=== PATIENT | female | born 1955 | race Hispanic/Latino ===

== ENCOUNTER 2017-07-08 16:10 | Inpatient (IN) | payer SELFPAY ==
[~2017-07-08] VITALS: Ht 165.1 cm; Wt 77.0 kg
[~2017-07-08 16:10] MED LIST: FISH OIL1000 MG PO; LANTUS100 UNIT/M SC; LISINOPRIL20 MG PO; METFORMIN500 MG PO; METOPROL TAR25 MG PO; NORVASC2.5 MG PO; PRAVASTATIN10 MG PO; ULTRAM50 MG PO; ZOFRAN4 MG/TAB PO
--- NOTE | 2017-07-08 16:21 | NUR ---
PT TO ROOM FOR EXAM
[2017-07-08] MEDS ORDERED: ATENOLOL50 MG PO (16:51)
[2017-07-08] MEDS ORDERED: AMITRIPTYLIN25 MG PO (16:53)
[2017-07-08] MEDS ORDERED: RANITIDINE150 M1 PO (16:53)
[2017-07-08] MEDS ORDERED: LOPID600 MG PO (16:56)
[2017-07-08] MEDS ORDERED: OSELTAMIVIR PHO75 MG PO (16:57)
--- NOTE | 2017-07-08 17:05 | NUR ---
RT AT BEDSIDE TO DRAW ABG. PATIENT INFORMED PRIOR, VERBAL UNDERSTANDING.
--- NOTE | 2017-07-08 17:15 | NUR ---
2L /MIN APPLIED TO PATIENT VIA NASAL CANNULA.
[2017-07-08 17:27] LABS: HEMATOCRIT 41.2 % (37.0-47.0); HEMOGLOBIN 13.5 g/dl (12.0-16.0); MEAN CELL VOLUME 83.1 fL CALC (80.0-100.0); MEAN CORPUSCULAR HGB 27.2 pG CALC (26.0-32.0); MEAN CORPUSCULAR HGB CONC 32.8 g/L CALC (32.0-36.0); PLATELET COUNT 244 thou/uL (130-400); RED BLOOD COUNT 4.96 mill/uL (4.20-5.60); RED CELL DISTRI WIDTH 13.8 % (11.5-15.5)
--- NOTE | 2017-07-08 17:30 | NUR ---
PATIENT REPORTS NO RELIEF AFTER 2 MG MORPHINE GIVEN. INFORMED.
[2017-07-08 17:37] LABS: IMMATURE GRANULOCYTES 7.8 % (0.0-1.0)
[2017-07-08 17:38] LABS: BAND 30 % (0-8); MANUAL DIFFERENTIAL YES
[2017-07-08 17:49] LABS: ALBUMIN 3.9 g/dL (3.2-5.0); ALKALINE PHOSPHATASE 109 u/l (38-126); AMYLASE < 30 u/l (30-110); ANION GAP 26 (6-22 (CALC)); BILIRUBIN, TOTAL 0.4 mg/dL (0.0-1.4); BUN 29 mg/dL (8-23); BUN/CREATININE RATIO 27 (12-20 (CALC)); CARBON DIOXIDE 17 mmol/l (22-30); CHLORIDE 98 mmol/l (95-108); CREATININE 1.1 mg/dL (0.5-1.0); GFR 50 ML/MIN (>=60 (CALC)); GFR FOR AFR.AMER. > 60 ML/MIN (>=60 (CALC)); LIPASE 20 u/l (23-300); POTASSIUM 4.8 mmol/l (3.5-5.1); SGOT/AST 16 u/l (9-36); SGPT/ALT 23 u/l (11-66); SODIUM 136 mmol/l (137-146); TOTAL PROTEIN 7.3 g/dL (6.3-8.2)
[2017-07-08 18:00] LABS: MYOGLOBIN 45 ng/mL (0 - 62)
--- NOTE | 2017-07-08 18:20 | NUR ---
SECOND LINE STARTED. MEDICATIONS PER MD ORDER GIVEN. VERBAL UNDERSTANDING OF PLAN OF CARE. INFORMED TO CALL FOR ASSISTANCE, CALL LIGHT WITHIN REACH. WILL CONTINUE TO MONITOR.
--- NOTE | 2017-07-08 19:04 | NUR ---
REPORT CALLED TO ERIN PERSAUD.
--- NOTE | 2017-07-08 19:15 | NUR ---
PT ARRIVED TO UNIT VIA STRETCHER WITH ER STAFF. ASSISTED TO BED WITH ONE PERSON ASSIST. DAUGHTER AT BEDSIDE. IV FLUIDS BOLUSES REINITIATED PER SEPSIS RISK PROTOCOL. [facility] CALLED FROM LAB AND MD NOTIFIED; TREATMENT CURRENTLY IN PLACE AND NEW ORDER FOR A TOTAL OF 4L BOLUS. PT C/O SEVERE PAIN TO RUQ RADIATING TO HER BACK. TACHYPNIC ON 2L OF OXYGEN WITH RESPIRAITONS IN THE 30'S AND HEART RATE ALSO ELEVATED IN THE 130'S. GLUCOSE UPON ARRIVAL IS 504. DR. ANGULO GAVE ORDERS TO GIVE 2100 INSULIN NOW. PT IS PERSIAN SPEAKING ONLY. ORIENTED TO ROOM AND CALL LIGHT SYSTEM. SAFETY MEASURES IN PLACE. CALL LIGHT WITHIN REACH.
--- NOTE | 2017-07-08 19:15 | NUR ---
PATIENT TRANSPORTED TO [facility] VIA WHEELCHAIR. BEDSIDE REPORT GIVEN TO ERIN PERSAUD. CARE RELINQUISHED.
[2017-07-08 20:30] VITALS: BP 146/75
[2017-07-08 21:47] LABS: ANION GAP 17 (6-22 (CALC)); BUN 28 mg/dL (8-23); BUN/CREATININE RATIO 36 (12-20 (CALC)); CARBON DIOXIDE 17 mmol/l (22-30); CREATININE 0.8 mg/dL (0.5-1.0); GFR > 60 ML/MIN (>=60 (CALC)); GFR FOR AFR.AMER. > 60 ML/MIN (>=60 (CALC)); POTASSIUM 4.2 mmol/l (3.5-5.1); SODIUM 141 mmol/l (137-146)
[2017-07-08 21:48] LABS: CHLORIDE 111 mmol/l (95-108)
[2017-07-08 21:58] VITALS: BP 145/80
--- NOTE | 2017-07-08 22:30 | NUR ---
FLUID BOLUS' COMPLETED AND PT IS NOW ON MAINTENANCE FLUIDS. LACTIC ACID DECREASED TO 2.8. HEART RATE STILL ELEVATED AT 128 AND RESPIRATIONS 28. BLOOD GLUCOSE DECREASED TO 275. PAIN MEDICATION GIVEN WITH GOOD EFFECT. PT NOW RESTING IN BED WITH EYES CLOSED IN NO DISTRESS. HAS BEEN UP TO [facility] TO VOID 700ML SO FAR.
[2017-07-08 23:05] VITALS: BP 115/70
[2017-07-09] VITALS (17 sets, daily range): BP systolic 116–187; BP diastolic 64–94
--- NOTE | 2017-07-09 00:52 | NUR ---
PT AWAKE; STATES THAT PAIN IS BETTER. HAS NO REQUESTS AT THIS TIME. BLOOD PRESSURE IS STABLE AND LACTIC ACID WNL. RESPIRATIONS ARE EVEN AND UNLABORED ON OXYGEN.
--- NOTE | 2017-07-09 05:28 | NUR ---
PT CONTINUES TO C/O PAIN TO AREA BENEATH RIGHT RIB CAGE; WILL GIVE NEXT DOSE OF TORDOL WHEN ABLE. RESPIRATIONS EVEN AND UNLABORED ON OXYGEN. PT PLACED ON DROPLET PRECAUTIONS FOR FLU DX. UP TO BSC AD ANDRIY WITH STAND BY ASSIST. HAS NOT PLACED CALL LIGHT ON; ENCOURAGED TO CALL FOR ASSISTANCE. IV FLUIDS INFUSING WITHOUT DIFFICUTLY; BOTH IV SITES APPEAR HEALTHY. SAFETY MEASURES IN PLACE. CALL LIGHT WITHIN REACH.
[2017-07-09 05:30] LABS: HEMATOCRIT 34.6 % (37.0-47.0); HEMOGLOBIN 11.2 g/dl (12.0-16.0); IMMATURE GRANULOCYTES 0.6 % (0.0-1.0); MEAN CELL VOLUME 83.8 fL CALC (80.0-100.0); MEAN CORPUSCULAR HGB 27.1 pG CALC (26.0-32.0); MEAN CORPUSCULAR HGB CONC 32.4 g/L CALC (32.0-36.0); PLATELET COUNT 233 thou/uL (130-400); RED BLOOD COUNT 4.13 mill/uL (4.20-5.60); RED CELL DISTRI WIDTH 13.8 % (11.5-15.5)
[2017-07-09 06:15] LABS: ANION GAP 14 (6-22 (CALC)); BUN 25 mg/dL (8-23); BUN/CREATININE RATIO 44 (12-20 (CALC)); CARBON DIOXIDE 20 mmol/l (22-30); CHLORIDE 114 mmol/l (95-108); CREATININE 0.6 mg/dL (0.5-1.0); GFR > 60 ML/MIN (>=60 (CALC)); GFR FOR AFR.AMER. > 60 ML/MIN (>=60 (CALC)); SODIUM 144 mmol/l (137-146)
[2017-07-09 06:25] LABS: MANUAL DIFFERENTIAL YES
[2017-07-09 06:26] LABS: BAND 13 % (0-8); PLATELET ESTIMATE NORMAL
--- NOTE | 2017-07-09 06:32 | NUR ---
DAUGHTER IN LAW CALLED FOR AN UPDATE; ALL QUESTIONS ANSWERED TO SATISFACTION.
--- NOTE | 2017-07-09 07:45 | NUR ---
ASSESSMENT IS COMPLETED; PT IS SITTING UP IN BED WITH MINIMAL DISTRESS NOTED. IV SITE IS FREE FROM REDNESS OR EDEMA. CONITNUE TO OBSERVE AND MONITOR. O2@ 2LITERS WITH NC.
--- NOTE | 2017-07-09 12:15 | NUR ---
PT IS RELAXING IN BED WITH FAMILY IN THE ROOM. IV SITE IS FREE FROM REDNESS OR EDEMA.
--- NOTE | 2017-07-09 14:45 | NUR ---
PT WENT TO HAVE AN CTA COMPLETED> RETURNED AT 1500
--- NOTE | 2017-07-09 16:15 | NUR ---
PT CONTINUES TO RELAX IN BED , CONTINUE T OSBERVE AND MONITOR.
--- NOTE | 2017-07-09 18:31 | NUR ---
PT ATE BETTER FOR SUPPER FULL LIQUIDS EASIER FOR PT TO TAKE. CONTINUE TO OSBERVE AND MONITOR.
--- NOTE | 2017-07-09 19:15 | NUR ---
PATIENT IS SITTING UP IN THE CHAIR-AWAKE ALERT AND ORIENTEDX3. PATIENT WITH O2 VIA NASAL CANNULA IN PLACE AT 2LPM. PATIENT RECIEVING NEB TREATMENT AT THIS TIME. PATIENT WITH DIMINISHED BS TO RIGHT LUNG FEILD. C/O SEVERE PAIN TO RIGHT CHEST/BACK. COLOR IS PASTY/SKIN IS CLAMMY. MARITO MARTINEZ AWARE OF TROP OF 0.358. WILL AWAIT FURTHER ORDERS.
--- NOTE | 2017-07-09 19:45 | NUR ---
PATIENT MEDICATED FOR C/O SEVERE PAIN WITH DILAUDID 0.5MG IVP ORDRED FOR PAIN. IV SITE TO RIGHT FOREARM INTACT AND APPEARS HEALTHY AT THIS TIME. JOHN ROBINS FROM OB HERE FOR TRANSLATION. PATIENT INFORMED THAT SHE IS GOING TO BE TRANSFERRED TO ICU FOR CLOSER OBSERVATION AT THIS TIME. PATIENT VERBALIZES UNDERSTANDING OF THE STATED. PREPARING FOR TRANSFER TO ICU-4 AT THIS TIME.
--- NOTE | 2017-07-09 20:00 | NUR ---
PATIENT MEDICATED WITH LOVENOX SQ GIVEN AND VANCO STARTED ORDERED. PATIENT TRANSFERRED TO ICU-BED 4 VIA BED WITH O2 VIA NASAL CANNULA. BEDSIDE REPORT GIVEN TO MEDHAT ROBINS . ATTEMPTED TO CALL PHONE NUMBERS LISTED IN ADMINISTRATIVE DATA-BOTH NUMBERS ARE NOT IN SERVICE AT THIS TIME.
--- NOTE | 2017-07-09 20:05 | NUR ---
PT TO ICU VIA BED ACCOMPANIED BY MS STAFF. PT PLACED ON MOLD SHIFTER, O2 SAT, O2 2L NC, BP.
--- NOTE | 2017-07-09 20:15 | NUR ---
PT AWAKE IN BED. HEBREW SPEAKING ONLY. PT IS ALERT AND ORIENTED X3. PERRLA. RESP ARE EVEN AND UNLABORED. NO DISTRESS NOTED. O2 2L NC. MINIMAL BREATH SOUNDS NOTED ON RIGHT SIDE AND VERY COARSE. WHEEZING NOTED IN LUNG ON LEFT SIDE. HR REGULAR. TACHY. PULSES PALPABLE THROUGHOUT. NO EDEMA NOTED. BS HYPOACTIVE. PT REPORTS THAT SHE HAS NOT HAD A BM IN 2 WEEKS. PT REPORTS VOMITTING AT HOME. #20 RAC WITH NS @125ML/HR. #20 RIGHT WRIST NO REDNESS OR EDEMA NOTED AT BOTH SITES. NITRO PASTE PLACED ON PATIENT. WILL CONTINUE TO MONITOR
--- NOTE | 2017-07-09 20:30 | NUR ---
DR ANGULO NOTIFIED OF PATIENT STATUS. ORDERS OBTAINED. WILL CONTINUE TO MONITOR
--- NOTE | 2017-07-09 21:00 | NUR ---
LAB INTO ROOM TO DRAW TROPONIN
--- NOTE | 2017-07-09 21:25 | NUR ---
DAUGHTER FRANCOIS IN ROOM WITH PT. UPDATED FAMILY ON PLAN. WILL CONTINUE TO MONITRO
--- NOTE | 2017-07-09 21:35 | NUR ---
LAB CALLED FOR CRITICAL TROPONIN OF 0.255.
--- NOTE | 2017-07-09 21:38 | NUR ---
LEFT MESSAGE ON DR SANCHEZ VOICEMAIL TO NOTIFY OF ELEVATED TROPONIN.
--- NOTE | 2017-07-09 21:45 | NUR ---
LEFT MESSAGE ON DR SANCHEZ VOICEMAIL IN REFERENCE TO ELEVATED TROPONIN
--- NOTE | 2017-07-09 21:50 | NUR ---
PHONED DR ANGULO. DR ANGULO NOTED THAT TROPONIN IS TRENDING DOWN. REPEAT TROPONIN IN 4 HOURS.
--- NOTE | 2017-07-09 23:53 | NUR ---
PT RESTING IN BED WITH EYES CLOSED. AROUSES TO VERBAL STIMULI. RESP ARE EVEN AND UNLABORED. NO DISTRESS NOTED. WILL CONTINUE TO MONITOR
[2017-07-10] VITALS (22 sets, daily range): BP systolic 134–176; BP diastolic 58–89
--- NOTE | 2017-07-10 02:19 | NUR ---
PT RESTING IN BED WITH EYES CLOSED. PT AROUSES EASILY TO VERBAL STIMULI. RESP ARE EVEN AND UNLABORED., NO DISTRESS NOTED. WILL RIKATINUE TO MONITOR
--- NOTE | 2017-07-10 02:30 | NUR ---
TEMP 99.7. MEDICATED WITH TYLENOL. PT STATES THAT SHE IS HAVING SOME PAIN MEDICATED WITH DILAUDID 0.5MG IV. WILL CONTINUE TO MONITOR
--- NOTE | 2017-07-10 03:40 | NUR ---
PT REPORTS THAT PAIN IS BETTER. TEMP IS NOW 98.9
--- NOTE | 2017-07-10 04:00 | NUR ---
PT RESTING IN BED WITH EYES CLOSED. RESP ARE EVEN AND UNLABORED. NO DISTRESS NOTED. WILL CONTINUE TO MONITOR
--- NOTE | 2017-07-10 05:50 | NUR ---
[facility] CALLED AND STATED THAT THEY WERE AWAITING PATIENT TO BE TRANSFERRED. EXPLAINED THAT THERE ARE CURRENTLY NO ORDERS FOR TRANSFER.
--- NOTE | 2017-07-10 05:55 | NUR ---
DAUGHTER IN LAW FRANCOIS CALLED AND REQUESTED AN UPDATE. UPDATE PROVIDED. DXPLAINED THAT TROPONINS ARE TRENDING DOWN. ALSO EXPLAINED THAT PT IS BREATHING A LOT BETTER THIS MORNING.
--- NOTE | 2017-07-10 06:00 | NUR ---
PT RESTING IN BED AWAKE. ASSISTED TO BSC. MINIMAL ASSISTANCE REQUIRED. PT ASSISTED BACK TO BED. WILL CONTINUE TO MONITOR
--- NOTE | 2017-07-10 06:02 | NUR ---
LAB INTO DRAW AM LABS.
[2017-07-10 06:18] LABS: HEMATOCRIT 30.8 % (37.0-47.0); HEMOGLOBIN 10.2 g/dl (12.0-16.0); IMMATURE GRANULOCYTES 0.6 % (0.0-1.0); MEAN CELL VOLUME 82.1 fL CALC (80.0-100.0); MEAN CORPUSCULAR HGB 27.2 pG CALC (26.0-32.0); MEAN CORPUSCULAR HGB CONC 33.1 g/L CALC (32.0-36.0); PLATELET COUNT 286 thou/uL (130-400); RED BLOOD COUNT 3.75 mill/uL (4.20-5.60); RED CELL DISTRI WIDTH 13.9 % (11.5-15.5)
[2017-07-10 06:41] LABS: MANUAL DIFFERENTIAL YES
[2017-07-10 06:50] LABS: BAND 1 % (0-8)
[2017-07-10 06:51] LABS: PLATELET ESTIMATE NORMAL
--- NOTE | 2017-07-10 07:13 | NUR ---
INTRODUCED SELF TO PT. PT SLEEPING ON BACK. CLEAR LUNG SOUNDS ON LEFT, DIMISHED/WHEEZING IN RIGHT LUNGS. BREATHING IS EVEN & UNLABORED. PT IS SINUS TACH, STRONG EQUAL PULSES, NO EDEMA. TURNS SELF. ABD SOFT & NONTENDER. NEURO WNL. SKIN DRY & WARM. SPEECH CLEAR. EYES PERRLA.
[2017-07-10 07:36] LABS: ANION GAP 16 (6-22 (CALC)); BUN 21 mg/dL (8-23); BUN/CREATININE RATIO 34 (12-20 (CALC)); CARBON DIOXIDE 21 mmol/l (22-30); CHLORIDE 111 mmol/l (95-108); CREATININE 0.6 mg/dL (0.5-1.0); GFR > 60 ML/MIN (>=60 (CALC)); GFR FOR AFR.AMER. > 60 ML/MIN (>=60 (CALC)); MAGNESIUM 1.7 mg/dL (1.6-2.3); POTASSIUM 3.9 mmol/l (3.5-5.1); SODIUM 144 mmol/l (137-146)
--- NOTE | 2017-07-10 07:51 | NUR ---
PT SITTING UP IN BED EATING BREAKFAST. DAUGHTER @ BEDSIDE. PT C/O RIGHT CHEST PAIN & ITCHING TO LEFT BREAST.
--- NOTE | 2017-07-10 07:53 | NUR ---
Vancomycin Age: 62 years Weight: 76 kg Height: 65 in Gender: Female SCR: 0.6 mg/dl CRCL=90 SUSPECTED PNEUMONIA GOAL TROUGH 15-20 Give Vancomycin 1250 mg q12 hrs NEXT TROUGH WILL BE 07/11/17 AT 0800
--- NOTE | 2017-07-10 08:10 | NUR ---
MD MARCE @ BEDSIDE DISCUSSING POC & TREATMENTS/PROCEDURES WITH PT & DAUGHTER.
[2017-07-10 09:48] LABS: PROTHROMBIN TIME 10.8 SECONDS (9.0-12.5)
--- NOTE | 2017-07-10 09:54 | NUR ---
PT MEDICATED. DAUGHTER @ BEDSIDE. PT STATES SHE HAS TO GO "#2" BUT WONT GO ON BEDSIDE COMMODE. OPTIONS DISCUSSED WITH PT & DAUGHTER.
--- NOTE | 2017-07-10 10:29 | NUR ---
PT C/O LEFT SIDED CP 03/20. EKG COMPLETED. REPEAT TROP COLLECTED. DILAUDID GIVEN.
--- NOTE | 2017-07-10 10:49 | NUR ---
PT CHANGED TO 3L NC DUE TO CONTINUED SAT RATES OF 90-91% DAUGHTER EATING AT BEDSIDE. PT STATES CP RECEEDING.
--- NOTE | 2017-07-10 11:52 | NUR ---
PT UP IN BED EATING LUNCH. DEE DEE @ BEDSIDE. PT STATES CP 07/21. 93% ON 3L NC. PT BREATHING IS EVEN & UNLABORED.
--- NOTE | 2017-07-10 13:45 | NUR ---
PT LEFT ICU FOR CT GUIDED THORACENTESIS IN STABLE CONDITION AT 1220. ABOUT 200ML FLUIDS DRAIN, SAMPLE SENT TO LAB. PT TOLERATED PROCEDURE WELL. RETURNED TO ICU AT 1340. WILL CONTINUE TO MONITOR PT. PTS BREATHING IS EVEN & UNLABORED. PT RESTING IN BED.
--- NOTE | 2017-07-10 14:46 | NUR ---
NITRO PATCH REMOVED, NEW NITRO PATCH PLACED ON RLQ ABD. PT GIVEN WATER.
--- NOTE | 2017-07-10 16:02 | NUR ---
PT SLEEPING IN BED. NO VISITORS IN ROOM. BREATHING IS EVEN & UNLABORED. PT HAS OCCASIONAL NONPRODUCTIVE COUGH. WILL CONTINUE TO MONITOR.
--- NOTE | 2017-07-10 17:00 | NUR ---
VERBAL ORDER FROM MD FOR PT TO BE OFF MONITORS FOR SHOWER.
--- NOTE | 2017-07-10 17:02 | NUR ---
PTS DAUGHTER @ BEDSIDE. WOKE UP PT. PT STATES SHE IS BREATHING BETTER NOW. PT PREPARED FOR SHOWER, LINEN CHANGE. ACCUCHECK COMPLETED. DINNER HELD UNTIL AFTER SHOWER.
--- NOTE | 2017-07-10 20:00 | NUR ---
PT AWAKE IN BED. FAMILY IN ROOM. PT IS ALERT AND ORIENTED X3. PERRLA. RESP ARE EVEN AND UNLABORED. NO DISTRESS NOTED. WHEEZING NOTED THROUGHOUT LUNGS. HR REGULAR. PULSES PALPABLE THROUGHOUT. NO EDEMA NOTED. BS ACTIVE. PT DENIES PAIN AT THIS TIME. #20 RAC AND #20 RFA. NO REDNESS OR EDEMA NOTED. WILL CONTINUE TO MONITOR
--- NOTE | 2017-07-10 21:00 | NUR ---
PT WITH COMPLAINTS OF RIGHT SIDED PAIN. PT MEDICATED. WILL CONTINUE TO MONITOR
--- NOTE | 2017-07-10 22:14 | NUR ---
PT RESTING IN BED WITH EYES CLOSED RESP ARE EVEN AND UNLABORED. NO DISTRESS NOTED
[2017-07-11] VITALS (20 sets, daily range): BP systolic 128–168; BP diastolic 60–89
--- NOTE | 2017-07-11 | NUR ---
PT RESTING IN BED WITH EYES CLOSED. RESP ARE EVEN AND UNLABORED. NO DISTRESS NOTED. WILL CONTINUE TO MONITOR
--- NOTE | 2017-07-11 02:00 | NUR ---
PT RESTING IN BED WITH EYES CLOSED. RESP ARE EVEN AND UNLABORED. NO DISTRESS NOTED. WILL CONTINUE TO MONITOR
--- NOTE | 2017-07-11 04:00 | NUR ---
PT RESTING IN BED WITH EYES CLOSED. AROUSES TO VERBAL STIMULI. NO COMPLAINTS VOICES. RESP ARE EVEN AND UNLABORED. NO DISTRESS NOTED. WILL CONTINUE TO MONITOR
[2017-07-11 05:10] LABS: HEMATOCRIT 27.5 % (37.0-47.0); HEMOGLOBIN 9.2 g/dl (12.0-16.0); IMMATURE GRANULOCYTES 1.7 % (0.0-1.0); MEAN CELL VOLUME 82.3 fL CALC (80.0-100.0); MEAN CORPUSCULAR HGB 27.5 pG CALC (26.0-32.0); MEAN CORPUSCULAR HGB CONC 33.5 g/L CALC (32.0-36.0); PLATELET COUNT 314 thou/uL (130-400); RED BLOOD COUNT 3.34 mill/uL (4.20-5.60); RED CELL DISTRI WIDTH 14.1 % (11.5-15.5)
[2017-07-11 05:38] LABS: ANION GAP 14 (6-22 (CALC)); BUN 23 mg/dL (8-23); BUN/CREATININE RATIO 39 (12-20 (CALC)); CARBON DIOXIDE 23 mmol/l (22-30); CHLORIDE 113 mmol/l (95-108); CREATININE 0.6 mg/dL (0.5-1.0); GFR > 60 ML/MIN (>=60 (CALC)); GFR FOR AFR.AMER. > 60 ML/MIN (>=60 (CALC)); POTASSIUM 3.4 mmol/l (3.5-5.1); SODIUM 146 mmol/l (137-146)
[2017-07-11 05:55] LABS: BAND 2 % (0-8); MANUAL DIFFERENTIAL YES
[2017-07-11 05:56] LABS: PLATELET ESTIMATE NORMAL
--- NOTE | 2017-07-11 06:10 | NUR ---
PT RESTING IN BED AWAKE. RESP ARE EVEN AND UNLABORED. NO DISTRESS NOTED. WILL CONTINUE TO MONITOR
--- NOTE | 2017-07-11 07:25 | NUR ---
PT RESTING IN BED, AM ASSESSMENT COMPLETED, SEE INTERVENTIONS, IVF CONTINUE ORDERED, SKIN WARM AND DRY, LUNGS COUNDS STILL WITH CRACKLES, DECREASED ON RIGHT SIDE, NO SHORTNESS OF BREATH OR DISTRESS NOTED, ENCOURAGED TO REST PRN, O2 REMAINS ON AT 3L VIA NC, REMAINS ON DROPLET PRECAUTIONS, IV ACCESS INTACT WITH NO REDNESS OR SWELLING NOTED AT INSERTION SITE, COMFORT MEASURES PROVIDED, SAFETY MEASURES REINFORCED, WILL CONTINUE TO MONITOR
--- NOTE | 2017-07-11 07:45 | NUR ---
SET UP ASSIST PROVIDED FOR AM MEAL, VISITOR AT BEDSIDE
--- NOTE | 2017-07-11 09:30 | NUR ---
MEDICTAED FRO COMPLAINTS OF PAIN, STARTED LORTAB, EDUCATED PT REGARDING REASON FOR MEDICATION, EXPECTATIONS AND POTENTIAL SIDE EFFECTS, WILL CONTINUE TO MONITOR.
--- NOTE | 2017-07-11 10:47 | NUR ---
PT RESTING MODERATE RELIEF WITH PAIN MEDICATION, INTO SEE PATIENT EARLIER AND PLAN OF CARE DISCUSSED WITH GLORIA CASTANO ACTING UI UX WEB DEVELOPER, QIANA FRANCO WITHIN REACH
--- NOTE | 2017-07-11 10:58 | NUR ---
VISITOR AT BEDSIDE, CALL FRANCO WITHIN REACH
--- NOTE | 2017-07-11 11:21 | NUR ---
ACCU CHECK 190, COVERAGE PROVIDED ORDERED
--- NOTE | 2017-07-11 11:30 | NUR ---
Abel.Phillip AT BEDSIDE AND PERFORMED INCENTIVE SPIROMETRY TEACHING AND USAGE.
--- NOTE | 2017-07-11 12:15 | NUR ---
PT TOLERATED AFTERNOON MEAL W/O INCIDENT, CALL FRANCO WITHIN REACH, CONTINUES TO HAVE INTERMITTENT COUGH, ENGINEER FIRST ASSISTANT AT THIS TIME, O2 REMAINS ON AT 3L VIA NC, WILL CONTINUE TO MONITOR.
--- NOTE | 2017-07-11 13:31 | NUR ---
FAMILY AT BEDSIDE EARLIER TOLERATED WELL, PT CONTINUES TO COMPLAIN OF SOME CHEST/THORAX PRESSURE/PAIN, WILL MEDICATED ORDERED, FAMILY ALOS STATES PT SLIGHTLY ANXIOUS REGARDING BEING IN THE HOSPITAL, ETC... COMFORT MEASURES PROVIDED, AWARE, NEW ORDERS REC'D, WILL MEDICATE ORDERED.
--- NOTE | 2017-07-11 14:33 | NUR ---
PT MEDICATED FRO COMPLAINTS OF PAIN AND ANXIETY, RESTING IN BED, NO S/S OF DISTRESS NOTED, CALL FRANCO WITHIN REACH, WILL CONTINUE TO MONITOR.
--- NOTE | 2017-07-11 16:54 | NUR ---
pt resting in bed, no s/s of distress, dozes intermittenly, call stiles within reach
--- NOTE | 2017-07-11 18:45 | NUR ---
REPORT FROM SHIMON YA. ASSUMED PT. CARE.
--- NOTE | 2017-07-11 19:35 | NUR ---
PT. UP TO BEDSIDE COMMODE AT THIS TIME. AMBULATORY WITHOUT ASSISTANCE FROM BED TO COMMODE AND BACK.
--- NOTE | 2017-07-11 19:45 | NUR ---
FAMILY AT BEDSIDE AT THIS TIME. INFORMED TO MASK PRIOR TO ENTERING. FAMILY UPDATED ON PLAN OF CARE. DAUGHTER ON PHONE AT THIS TIME. PT. DENIES OTHER COMPLAINTS. WILL CONTINUE TO ASSESS.
--- NOTE | 2017-07-11 22:25 | NUR ---
RT. AT BEDSIDE AT THIS TIME TO ADMINISTER NEB TREATMENT. WILL CONTINUE TO MONITOR. CALL LIGHT REMAINS WITHIN REACH.
--- NOTE | 2017-07-11 22:35 | NUR ---
PT. MEDICATED PER PHYSICIAN ORDERS AND HER COMPLAINTS OF PAIN. STATES WITH 9/10 PAIN TO RT. SIDE OF CHEST AT THIS TIME. FAMILY OUT FROM BEDSIDE ACCUCHECK IS 201. MEDICATED ACCORDINGLY. WILL CONTINUE TO MONITOR.
[2017-07-12] VITALS (19 sets, daily range): BP systolic 140–183; BP diastolic 65–98
--- NOTE | 2017-07-12 00:34 | NUR ---
IV ANTIBIOTICS INFUSED. PT. AMBULATORY TO BEDSIDE COMMODE AND BACK TO BED WITH STEADY GAIT. RESPS REMAIN EVEN, LABORED UPON EXERTION. HR DOES ELEVATE WITH EXERTION. CALL LIGHT REMAINS WITHIN REACH. WILL CONTINUE TO MONITOR.
--- NOTE | 2017-07-12 02:02 | NUR ---
PT. WITH COUGHING EPISODE AT THIS TIME. MEDICATED PER PHYSICIAN ORDERS. PT. WITH IMMEDIATE IMPROVEMENT IN SX OF COUGH. HR ELEVATED AT 120'S. STATES WITH IMPROVEMENT IN PAIN AFTER ADMINISTRATION OF DILAUDID.
--- NOTE | 2017-07-12 04:10 | NUR ---
LAB AT BEDSIDE AT THIS TIME. PT. REMAINS STABLE ON THE MONITOR. HR SINUS AT 87. CALL LIGHT REMAINS WITHIN REACH. REMAINS 95% ON 2L NC. WILL CONTINUE TO MONITOR.
[2017-07-12 04:54] LABS: HEMATOCRIT 28.5 % (37.0-47.0); HEMOGLOBIN 9.5 g/dl (12.0-16.0); MEAN CELL VOLUME 82.4 fL CALC (80.0-100.0); MEAN CORPUSCULAR HGB 27.5 pG CALC (26.0-32.0); MEAN CORPUSCULAR HGB CONC 33.3 g/L CALC (32.0-36.0); RED BLOOD COUNT 3.46 mill/uL (4.20-5.60); RED CELL DISTRI WIDTH 14.3 % (11.5-15.5)
[2017-07-12 05:10] LABS: ANION GAP 15 (6-22 (CALC)); BUN 17 mg/dL (8-23); BUN/CREATININE RATIO 28 (12-20 (CALC)); CARBON DIOXIDE 26 mmol/l (22-30); CHLORIDE 109 mmol/l (95-108); CREATININE 0.6 mg/dL (0.5-1.0); GFR > 60 ML/MIN (>=60 (CALC)); GFR FOR AFR.AMER. > 60 ML/MIN (>=60 (CALC)); POTASSIUM 3.6 mmol/l (3.5-5.1); SODIUM 146 mmol/l (137-146)
--- NOTE | 2017-07-12 05:55 | NUR ---
PT. COMPLETED NEB TREATMENT. MEDICATED FOR PAIN AT THIS TIME. DENIES OTHER COMPLAINTS. CALL LIGHT REMAINS WITHIN REACH. WILL CONTINUE TO MONITOR AND TAKE PT. FOR 2 VIEW CXR WHEN RADIOLOGY READY.
--- NOTE | 2017-07-12 07:30 | NUR ---
PT RESTING IN BED, AM ASSESSMENT COMPLETED, SEE INTERVENTIONS, IVF CONTINUE ORDERED, SKIN WARM AND DRY, LUNGS SOUNDS DIMINISHED BILATERALLY MORE SO ON RIGHT THAN LEFT, SOME EXPIRATORY WHEEZES HEARD, SOME EXERTIONAL DYSPNEA NOTED, ENCOURAGED TO REST PRN, O2 REMAINS ON AT 2L VIA NC, REMAINS ON DROPLET PRECAUTIONS, COMFORT MEASURES PROVIDED, SAFETY MEASURES REINFORCED, SOME TRACE GENERALIZED EDEMA NOTED AND PT BECOMES MILDLY TACHYCARDIC WITH EXERTION, RECOVERS WELL WITH REST PERIODS, WILL CONTINUE TO MONITOR
--- NOTE | 2017-07-12 07:45 | NUR ---
SET UP ASSIST PROVIDED FOR AM MEAL, CALL FRANCO WITHIN REACH
--- NOTE | 2017-07-12 08:02 | NUR ---
LAB IN TO DRAW VANCO TROUGH LEVEL ORDERED
--- NOTE | 2017-07-12 08:11 | NUR ---
PT OOB TO BSC WITH STAND BY ASSIST, TOLERATED ACTIVITY WELL, CALL FRANCO WITHIN REACH, WILL CONTINUE TO MONITOR.
--- NOTE | 2017-07-12 09:25 | NUR ---
TAKES PO MEDICATIONS W/O INCIDENT, DULCOLAX SUPPOSITRY PER ORDERS FOR PT COMPLAINT OF CONSTIPATION, CALL FRANCO WITHIN REACH
--- NOTE | 2017-07-12 10:30 | NUR ---
PT RESTING, OFFERS NO NEW COMPLAINTS, CALL FRANCO WITHIN REACH
--- NOTE | 2017-07-12 11:50 | NUR ---
PT RESTING, SET UP ASSIST PROVIDED FOR AFTERNOON MEAL, MEDICATED FOR ACCU CHECK PER SLIDING SCALE ORDERS, WILL CONTINUE TO MONITOR.
--- NOTE | 2017-07-12 13:24 | NUR ---
PT RESTING OUT OF BED T BSC INDEPENDENTLY, TOLERAING IV ABT W/O INCIDENT, APPETITE FAIR
--- NOTE | 2017-07-12 14:26 | NUR ---
MEDICATED EARLIER FOR COMPLAINTS OF PAIN AND COUGH, CALL FRANCO WITHIN REACH, WILL CONTINUE TO MONITOR.
--- NOTE | 2017-07-12 15:49 | NUR ---
PT DOZING INTERMITTENLY, COUGH IMPROVED SINCE MEDICATED, CALL FRANCO WITHIN REACH, WILL CONTINUE TO MONITOR
--- NOTE | 2017-07-12 18:08 | NUR ---
MEDICATED FOR COMPLAINTS OF PAIN, COVERAGE PROVIDED FOR ACCU CHECK ORDERED, SET UP ASSIST PROVIDED FOR PM MEAL, CALL FRANCO WITHIN REACH
--- NOTE | 2017-07-12 19:00 | NUR ---
REPORT FROM SHIMON YA. ASSUMED PT. CARE.
--- NOTE | 2017-07-12 20:12 | NUR ---
DAUGHTER AT BEDSIDE AT THIS TIME. EXTENSIVE UPDATE PROVIDED TO PATIENT AND DAUGHTER AT THIS TIME ON HER PRESENT CONDITION AND CONTINUED COURSE OF TREATMENT. UPDATED ON CURRENT LAB RESULTS AND RADIOLOGY RESULTS. PT. AFEBRILE AT THIS TIME. BP SLIGHTLY ELEVATED. WILL MEDICATE PER ORDERS. PT. REMAINS AWAKE, ALERT, ORIENTED X 3. NO RESP DISTRESS NOTED. 97% ON 2L NC. NO EDEMA NOTED. IV FLUIDS INFUSING AT 20 CC/HR KVO.
--- NOTE | 2017-07-12 21:23 | NUR ---
PT. MEDICATED PER PHSYICIAN ORDERS. PT. DENIES COMPLAINTS OR NEEDS AT THIS TIME. CALL LIGHT REMAINS WITHIN REACH. LIGHTS DIMMED FOR COMFORT. VANCOMYCIN DRIP INFUSING WITHOUT SX OF INFILTRATION OR REACTIONS. WILL CONTINUE TO MONITOR.
--- NOTE | 2017-07-12 22:30 | NUR ---
VANCOMYCIN INFUSED. NO REACTIONS NOTED. IV FLUIDS CHANGED TO KVO. CALL LIGHT REMAINS WITHIN REACH. PT. RESPS EVEN AND UNLABORED. BP STABLE AT THIS TIME. SPO2 STABLE ON 2L NC. WILL CONTINUE TO MONITOR.
[2017-07-13] VITALS (18 sets, daily range): BP systolic 126–196; BP diastolic 55–95
--- NOTE | 2017-07-13 | NUR ---
PT. UP TO BEDSIDE COMMODE AT THIS TIME. C/O 02/18 PAIN TO RT. SIDE OF CHEST. DENIES INCREASING SOB. IV ABX CONTINUE TO INFUSE WITHOUT SX OF INFILTRATION, EXTRAVASATION, OR REACTION. WILL MEDICATE ORDERED.
--- NOTE | 2017-07-13 02:02 | NUR ---
PT. RESTING IN BED WITH EYES CLOSED. NO DISTRESS NOTED. REMAINS SINUS ON THE MONITOR. RESPS REMAINS EVEN, SHALLOW, UNLABORED. VSS. SPO2 IS 97% ON 2L VIA NC. IV FLUIDS CONTINUE AT KVO. WILL CONTINUE TO MONITOR.
--- NOTE | 2017-07-13 04:36 | NUR ---
PT. REMAINS ROUSABLE TO LIGHT VERBAL STIMULI. ORIENTED X 3. SKIN REMAINS WARM AND DRY. AFEBRILE. PT. REMAINS SINUS RHYTHM ON THE MONITOR. HR IN THE MID 70'S. RESPS REMAIN EVEN AND UNLABORED.
[2017-07-13 04:53] LABS: HEMATOCRIT 29.7 % (37.0-47.0); HEMOGLOBIN 9.6 g/dl (12.0-16.0); IMMATURE GRANULOCYTES 4.4 % (0.0-1.0); MEAN CORPUSCULAR HGB 26.8 pG CALC (26.0-32.0); MEAN CORPUSCULAR HGB CONC 32.3 g/L CALC (32.0-36.0); NEUT# 7.72 thou/uL (2.00-7.15); RED BLOOD COUNT 3.58 mill/uL (4.20-5.60); RED CELL DISTRI WIDTH 14.2 % (11.5-15.5)
[2017-07-13 05:11] LABS: ANION GAP 13 (6-22 (CALC)); BUN 17 mg/dL (8-23); BUN/CREATININE RATIO 33 (12-20 (CALC)); CARBON DIOXIDE 28 mmol/l (22-30); CHLORIDE 106 mmol/l (95-108); CREATININE 0.5 mg/dL (0.5-1.0); GFR > 60 ML/MIN (>=60 (CALC)); GFR FOR AFR.AMER. > 60 ML/MIN (>=60 (CALC)); POTASSIUM 3.6 mmol/l (3.5-5.1); SODIUM 144 mmol/l (137-146)
--- NOTE | 2017-07-13 06:05 | NUR ---
PT. DOWN AND BACK TO RADIOLOGY. UNEVENTFUL. RT AT BEDSIDE TO ADMINISTER NEB TREATMENT. ZOSYN AND SOLUMEDROL ADMINISTERED AT THIS TIME. PT. STATES WITH 8/10 PAIN AT THIS TIME. HYPERTENSIVE, WILL MEDICATE ORDERED. PT. SPEAKING ON CELL PHONE IN FULL SENTENCES IN NO DISTRESS. CALL LIGHT REMAINS WITHN REACH. ALL LINENS CHANGED.
--- NOTE | 2017-07-13 07:25 | NUR ---
ASSESSMENT IS COMPLETED: IV SITE IS FREE FROM REDNESS OR EDEMA. BREATH SOUNDS ARE COARSE AND DIMINISHED. HR IS REG,PULSES ARE STRONG X4. ABD IS SOFT WITH ACTIVE BS.
--- NOTE | 2017-07-13 09:40 | NUR ---
PT WENT FOR US EVAL TO HAVE THORACENTESIS. RETURNED FROM US VIA WC ACCOMPANIED BY STAFF AT 1005
--- NOTE | 2017-07-13 10:00 | NUR ---
RECEIVED A CALL FROM DAUGHTER IN LAW AND INQUIRING WHAT WE ARE GOING TO DO NOW. WILL HAVE DR BELLE OR MARITO MARTINEZ CALL FAMILY.
--- NOTE | 2017-07-13 12:15 | NUR ---
PT IS VISITING WITH FAMILY. NO DISTRESS NOTED. IV SITE ISF REE FROM REDNESS OR EDEMA.
--- NOTE | 2017-07-13 13:11 | NUR ---
S: ALEXANDER URENA is a 62 F who presents with pneumonia. She has a history of HTN, diabetes, dyslipidemia, CAD. All medications in patient's chart were reviewed. O: VS: BP 139/57, P 105, RR 27, T 97.0 W 77 kg, HT 65 in, Scr= 0.5, CrCl= 118.2 mL/min Vancomycin trough on 07/11/17 @ 0800: 12 mcg/mL Vancomycin trough on 07/12/17 @ 0800: 14 mcg/mL A: Blood culture shows sensitive to all tested medications except oxacillin. Vancomycin trough on 07/12 slightly under goal range of 15-20 mcg/mL however trough increased from 12 to 14 between 07/11 and 07/12. P: Patient is on Zosyn 3.375 g IV q6h. Patient is on Vancomycin 1250 mg IV q12h. Next trough will be drawn on 07/13/17 @ 1930 and will reasses dose. Pharmacy will follow and advise on antibiotics use as needed.
--- NOTE | 2017-07-13 14:00 | NUR ---
PT HAS BEEN RELAXING GAVE A NERVE PILL AND PAIN PILL TO RELAX PT. CONTINUE TO OBSERVE AMD MONITOR.
--- NOTE | 2017-07-13 16:15 | NUR ---
PT IS RELAXING IM BED WITH NO DISTRESS NOTED. RECIEVED A CALL FROM [facility] RE: TRANSFER WITH . WAITING ON A BED ASSIGNMENT AND MD TO ACCEPT; . CONTINUE TO OSBERVE AND MONITOR.
--- NOTE | 2017-07-13 16:21 | NUR ---
renetta blakely called and will call back with a physician and a bed.
--- NOTE | 2017-07-13 17:59 | NUR ---
PT IS NOT EATING VERY MUCH. FAMILY WOULD LIKE US TO ENCOURAGE HER TO EAT.
--- NOTE | 2017-07-13 18:24 | NUR ---
SPOKE WITH FRANCOIS DAUGHTER IN LAW. AND INFORMED PT THRU HER ABOUT [facility]. CALLED [facility] WILL BE HERE IN 2 OR 2 1/2 HRS TO TRANSPORT PT TO [facility].
--- NOTE | 2017-07-13 19:00 | NUR ---
REPORT FROM ERIN OH. ASSUMED PT. CARE.
--- NOTE | 2017-07-13 20:05 | NUR ---
PT. IS AWAKE, ALERT, ORIENTED X 3. FAMILY AT BEDSIDE AT THIS TIME. UPDATED ON PLAN OF CARE AND PENDING TRANSFER TO [facility]. PT. C/O BURNING SENSATION TO CHEST AND RT. CHEST PAIN AT 8/10. PT. DOES NOT APPEAR TO BE IN ANY DISTRESS. RESPS EVEN, SHALLOW, UNLABORED. SCANT COUGH NOTED. NO EDEMA. RT. MID/LOWER LUNG WHELAN DIMINISHED. CALL LIGHT REMAINS WITHIN REACH. WILL CONTINUE TO MONITOR.
--- NOTE | 2017-07-13 21:30 | NUR ---
PT. OUT [facility]IA [facility] [place] AT THIS TIME. STABLE AT TIME OF TRANSFER.
--- NOTE | 2017-07-13 21:50 | NUR ---
REPORT CALLED TO SHIMON MELÉNDEZ AT [facility].
== END 2017-07-13 21:30 | disposition short-term general hospital (02) | DRG 871 ==
LOC: ED 16:10 → ED-I 18:14 → ED 18:33 → MS2 18:34 → ICU 18:34 → MS2 07-09 19:26 → ICU 07-09 20:25
PROVIDERS: Emergency Medicine; Internal Medicine; Nurse Practitioner Family; ADMIT Internal Medicine; ATTEND Internal Medicine
PROC: 0W993ZZ Drainage of Right Pleural Cavity, Percutaneous Approach (ICD-10-PCS; principal; 2017-07-10)
DX: A41.9 Sepsis, unspecified organism (principal); J10.08 Influenza due to other identified influenza virus with other specified pneumonia; J96.01 Acute respiratory failure with hypoxia; J15.212 Pneumonia due to Methicillin resistant Staphylococcus aureus; E87.2 Acidosis; J15.6 Pneumonia due to other Gram-negative bacteria; J91.8 Pleural effusion in other conditions classified elsewhere; N17.9 Acute kidney failure, unspecified; R65.20 Severe sepsis without septic shock; E11.65 Type 2 diabetes mellitus with hyperglycemia; I10 Essential (primary) hypertension; E86.0 Dehydration; F32.9 Major depressive disorder, single episode, unspecified; K59.00 Constipation, unspecified; I25.10 Atherosclerotic heart disease of native coronary artery without angina pectoris; E78.5 Hyperlipidemia, unspecified; Z79.4 Long term (current) use of insulin
CPT/HCPCS: J0692; J1650; J2020; J3370; Q9967

== ENCOUNTER 2018-06-10 19:25 | Emergency (ER) | payer SELFPAY ==
[~2018-06-10] VITALS: Ht 165.1 cm; Wt 71.2 kg
[~2018-06-10 19:25] MED LIST changes: +AMITRIPTYLIN25 MG PO; +ATENOLOL50 MG PO; +LOPID600 MG PO; +OSELTAMIVIR PHO75 MG PO; +RANITIDINE150 M1 PO
[2018-06-10] MEDS ORDERED: LEVEMIR100 UNIT/M SC (20:05)
[2018-06-10 20:35] LABS: IMMATURE GRANULOCYTES 0.5 % (0.0-5.0); MEAN CELL VOLUME 80.9 fL CALC (80.0-100.0); MEAN CORPUSCULAR HGB 26.7 pG CALC (26.0-32.0); MEAN CORPUSCULAR HGB CONC 33.1 g/L CALC (32.0-36.0); NEUT# 5.65 thou/uL (2.00-7.15); RED BLOOD COUNT 4.45 mill/uL (4.20-5.60); RED CELL DISTRI WIDTH 13.4 % (11.5-15.5)
[2018-06-10 20:36] LABS: HEMOGLOBIN 11.9 g/dl (12.0-16.0); URINE BILIRUBIN - DIPSTICK NEGATIVE (NEGATIVE); URINE BLOOD DIPSTICK SMALL (NEGATIVE); URINE COLOR YELLOW; URINE GLUCOSE - DIPSTICK NEGATIVE (NEGATIVE); URINE KETONE NEGATIVE (NEGATIVE); URINE LEUK ESTERASE NEGATIVE (NEGATIVE); URINE NITRITE - DIPSTICK NEGATIVE (Negative); URINE PH 6.5 (4.5-8.0); URINE PROTEIN - DIPSTICK 100 mg/dL (NEG-TRACE); URINE SPECIFIC GRAVITY 1.025; URINE UROBILINOGEN - DIPSTICK 0.2 E.U./dL (0.2)
[2018-06-10 20:50] LABS: URINE SQUAMOUS EPITHELIAL CELL FEW EPI/hpf (0-FEW); URINE WBC 0-2 WBC/hpf (0-5)
[2018-06-10 21:00] LABS: ALBUMIN 4.4 g/dL (3.2-5.0); ALKALINE PHOSPHATASE 96 u/l (38-126); ANION GAP 14 (6-22 (CALC)); BILIRUBIN, TOTAL 0.2 mg/dL (0.0-1.4); BUN 21 mg/dL (8-23); BUN/CREATININE RATIO 35 (12-20 (CALC)); CARBON DIOXIDE 26 mmol/l (22-30); CHLORIDE 106 mmol/l (95-108); CREATININE 0.6 mg/dL (0.5-1.0); GFR > 60 ML/MIN (>=60 (CALC)); GFR FOR AFR.AMER. > 60 ML/MIN (>=60 (CALC)); POTASSIUM 4.4 mmol/l (3.5-5.1); SGOT/AST 14 u/l (9-36); SODIUM 142 mmol/l (137-146); TOTAL PROTEIN 8.4 g/dL (6.3-8.2)
[2018-06-10 21:20] LABS: ACT PARTIAL THROMBO TIME 27.5 SECONDS (20.0-32.5); INTERNATIONAL NORMALIZED RATIO 0.9 RATIO (0.7-1.3); PROTHROMBIN TIME 9.4 SECONDS (9.0-12.5)
[2018-06-10] MEDS ORDERED: CODEINE/GUAIFEN1 SOL PO (22:43)
[2018-06-10] MEDS ORDERED: IBUPROFEN600 MG PO (22:44)
[2018-06-10 23:02] VITALS: BP 162/79
== END 2018-06-10 23:02 | disposition home or self-care (01) | DRG 195 ==
LOC: ED 19:25
PROVIDERS: Emergency Medicine
DX: R09.1 Pleurisy (principal); J90 Pleural effusion, not elsewhere classified; R06.02 Shortness of breath; R07.81 Pleurodynia; R50.9 Fever, unspecified
CPT/HCPCS: Q9967

== ENCOUNTER 2018-10-24 20:09 | Observation (INO) | payer SELFPAY ==
[~2018-10-24] VITALS: Ht 165.1 cm; Wt 70.0 kg
[~2018-10-24 20:09] MED LIST changes: +CODEINE/GUAIFEN1 SOL PO; +IBUPROFEN600 MG PO; +LEVEMIR100 UNIT/M SC
[2018-10-24] MEDS ORDERED: TRAZODONE50 MG PO (20:36)
[2018-10-24] MEDS ORDERED: HYDROCHLOROT25 MG PO (20:37)
[2018-10-24] MEDS ORDERED: PRILOSEC20 MG PO (20:39)
[2018-10-24 20:51] LABS: HEMATOCRIT 38.4 % (37.0-47.0); HEMOGLOBIN 12.7 g/dl (12.0-16.0); IMMATURE GRANULOCYTES 0.3 % (0.0-5.0); MEAN CELL VOLUME 80.8 fL CALC (80.0-100.0); MEAN CORPUSCULAR HGB 26.7 pG CALC (26.0-32.0); MEAN CORPUSCULAR HGB CONC 33.1 g/L CALC (32.0-36.0); NEUT# 6.47 thou/uL (2.00-7.15); RED BLOOD COUNT 4.75 mill/uL (4.20-5.60); RED CELL DISTRI WIDTH 13.5 % (11.5-15.5)
[2018-10-24 21:05] LABS: ALBUMIN 5.2 g/dL (3.2-5.0); ALKALINE PHOSPHATASE 93 u/l (38-126); ANION GAP 17 (6-22 (CALC)); BUN 17 mg/dL (8-23); BUN/CREATININE RATIO 22 (12-20 (CALC)); CARBON DIOXIDE 26 mmol/l (22-30); CHLORIDE 100 mmol/l (95-108); CREATININE 0.8 mg/dL (0.5-1.0); GFR > 60 ML/MIN (>=60 (CALC)); GFR FOR AFR.AMER. > 60 ML/MIN (>=60 (CALC)); POTASSIUM 3.6 mmol/l (3.5-5.1); SGOT/AST 19 u/l (9-36); SODIUM 140 mmol/l (137-146); TOTAL PROTEIN 9.4 g/dL (6.3-8.2)
[2018-10-24 21:07] LABS: BILIRUBIN, TOTAL 0.4 mg/dL (0.0-1.4)
[2018-10-24 21:17] LABS: MYOGLOBIN 38 ng/mL (0 - 62)
[2018-10-25 00:09] VITALS: BP 148/79
[2018-10-25 04:10] VITALS: BP 129/77
[2018-10-25 05:03] LABS: HEMATOCRIT 33.6 % (37.0-47.0); HEMOGLOBIN 10.9 g/dl (12.0-16.0); IMMATURE GRANULOCYTES 0.4 % (0.0-5.0); MEAN CELL VOLUME 82.4 fL CALC (80.0-100.0); MEAN CORPUSCULAR HGB 26.7 pG CALC (26.0-32.0); MEAN CORPUSCULAR HGB CONC 32.4 g/L CALC (32.0-36.0); NEUT# 5.09 thou/uL (2.00-7.15); RED BLOOD COUNT 4.08 mill/uL (4.20-5.60); RED CELL DISTRI WIDTH 13.7 % (11.5-15.5)
[2018-10-25 05:25] LABS: ALBUMIN 4.3 g/dL (3.2-5.0); ALKALINE PHOSPHATASE 97 u/l (38-126); ANION GAP 14 (6-22 (CALC)); BILIRUBIN, TOTAL 0.5 mg/dL (0.0-1.4); BUN 15 mg/dL (8-23); BUN/CREATININE RATIO 22 (12-20 (CALC)); CARBON DIOXIDE 27 mmol/l (22-30); CHLORIDE 105 mmol/l (95-108); CREATININE 0.7 mg/dL (0.5-1.0); GFR > 60 ML/MIN (>=60 (CALC)); GFR FOR AFR.AMER. > 60 ML/MIN (>=60 (CALC)); SODIUM 142 mmol/l (137-146); TOTAL PROTEIN 7.7 g/dL (6.3-8.2)
[2018-10-25 05:38] LABS: SGOT/AST 66 u/l (9-36)
[2018-10-25 07:55] VITALS: BP 135/55
[2018-10-25 11:00] VITALS: BP 133/76
[2018-10-25 15:19] VITALS: BP 147/72
[2018-10-25 19:02] VITALS: BP 129/75
[2018-10-26 04:07] VITALS: BP 141/74
[2018-10-26 05:05] LABS: HEMATOCRIT 31.6 % (37.0-47.0); HEMOGLOBIN 10.1 g/dl (12.0-16.0); IMMATURE GRANULOCYTES 0.4 % (0.0-5.0); MEAN CELL VOLUME 83.6 fL CALC (80.0-100.0); MEAN CORPUSCULAR HGB 26.7 pG CALC (26.0-32.0); NEUT# 2.43 thou/uL (2.00-7.15); RED BLOOD COUNT 3.78 mill/uL (4.20-5.60); RED CELL DISTRI WIDTH 13.8 % (11.5-15.5)
[2018-10-26 05:21] LABS: ALBUMIN 3.6 g/dL (3.2-5.0); ALKALINE PHOSPHATASE 122 u/l (38-126); AMYLASE 51 u/l (30-110); ANION GAP 12 (6-22 (CALC)); BILIRUBIN, TOTAL 0.4 mg/dL (0.0-1.4); BUN 12 mg/dL (8-23); BUN/CREATININE RATIO 18 (12-20 (CALC)); CARBON DIOXIDE 28 mmol/l (22-30); CHLORIDE 104 mmol/l (95-108); CREATININE 0.7 mg/dL (0.5-1.0); GFR > 60 ML/MIN (>=60 (CALC)); GFR FOR AFR.AMER. > 60 ML/MIN (>=60 (CALC)); LIPASE 107 u/l (23-300); MAGNESIUM 1.7 mg/dL (1.6-2.3); POTASSIUM 4.1 mmol/l (3.5-5.1); SGOT/AST 65 u/l (9-36); SODIUM 139 mmol/l (137-146); TOTAL PROTEIN 6.6 g/dL (6.3-8.2)
[2018-10-26 08:37] VITALS: BP 148/68
[2018-10-26 08:39] VITALS: BP 148/68
[2018-10-26] MEDS ORDERED: PROTONIX40 M2 PO (12:36)
[2018-10-26] MEDS ORDERED: TRAMADOL HCL50 MG PO (13:28)
== END 2018-10-26 13:34 | disposition home or self-care (01) | DRG 313 ==
LOC: ED 20:09 → ED-I 22:32 → ED 22:49 → MS2 22:50
PROVIDERS: Emergency Medicine; Internal Medicine Nephrology; ADMIT Internal Medicine; ATTEND Internal Medicine
DX: R07.89 Other chest pain (principal); K21.9 Gastro-esophageal reflux disease without esophagitis; I10 Essential (primary) hypertension; E11.9 Type 2 diabetes mellitus without complications; E78.5 Hyperlipidemia, unspecified; F41.8 Other specified anxiety disorders; Z79.4 Long term (current) use of insulin; Z98.890 Other specified postprocedural states
CPT/HCPCS: G0378; S0164

== ENCOUNTER 2018-10-31 07:23 | Day surgery (SDC) | payer SELFPAY ==
[~2018-10-31 07:23] MED LIST changes: +HYDROCHLOROT25 MG PO; +PRILOSEC20 MG PO; +PROTONIX40 M2 PO; +TRAMADOL HCL50 MG PO; +TRAZODONE50 MG PO
[2018-10-31] MEDS ORDERED: RANITIDINE300 M1 PO (08:01)
[2018-10-31] MEDS ORDERED: TRAMADOL HYDROC50 MG PO (08:02)
[2018-10-31] MEDS ORDERED: OMEPRAZOLE20 M2 PO (08:02)
[2018-10-31 10:27] VITALS: BP 122/58
== END 2018-10-31 10:00 | disposition home or self-care (01) | DRG 392 ==
LOC: ENDO 07:23 → ORM 09:00 → ENDO 10:00 → ORM 11:45
PROVIDERS: ATTEND Surgery
PROC: 0DB68ZX Excision of Stomach, Via Natural or Artificial Opening Endoscopic, Diagnostic (ICD-10-PCS; principal; 2018-10-31)
DX: K29.50 Unspecified chronic gastritis without bleeding (principal); K44.9 Diaphragmatic hernia without obstruction or gangrene; E11.9 Type 2 diabetes mellitus without complications; I10 Essential (primary) hypertension; I25.10 Atherosclerotic heart disease of native coronary artery without angina pectoris; Z79.4 Long term (current) use of insulin

== ENCOUNTER 2019-02-18 08:06 | Day surgery (SDC) | payer SELFPAY ==
[~2019-02-18] VITALS: Ht 167.6 cm; Wt 64.4 kg
[~2019-02-18 08:06] MED LIST changes: +METFORMIN1000 MG PO; +OMEPRAZOLE20 M2 PO; +RANITIDINE300 M1 PO; +TRAMADOL HYDROC50 MG PO
[2019-02-18 10:47] VITALS: BP 133/62
== END 2019-02-18 10:40 | disposition home or self-care (01) | DRG 392 ==
LOC: ENDO 08:06 → ORM 09:15 → ENDO 09:15
PROVIDERS: ATTEND Surgery
PROC: 0DJD8ZZ Inspection of Lower Intestinal Tract, Via Natural or Artificial Opening Endoscopic (ICD-10-PCS; principal; 2019-02-18)
PROC: 0DJ08ZZ Inspection of Upper Intestinal Tract, Via Natural or Artificial Opening Endoscopic (ICD-10-PCS; 2019-02-18)
DX: R10.9 Unspecified abdominal pain (principal); K92.1 Melena; K64.8 Other hemorrhoids; K44.9 Diaphragmatic hernia without obstruction or gangrene